=== PATIENT | female | born 1990 | race Caucasian/White ===

== ENCOUNTER 2017-10-17 06:00 | Emergency (ER) | payer BC ==
[~2017-10-17] VITALS: Ht 152.4 cm; Wt 58.0 kg
[2017-10-17 06:00] VITALS: BP 109/60
[~2017-10-17 06:00] MED LIST: IBUP600T16 PO
[2017-10-17] MEDS: ONDANSETRON ODT 4 MG TAB.RAPDIS PO ONE (06:15)
[2017-10-17 06:43] LABS: INFLUENZA A PATIENT NEGATIVE (NEGATIVE); INFLUENZA B PATIENT NEGATIVE (NEGATIVE)
[2017-10-17] MEDS ORDERED: ONDA4TAB10 SL (07:17)
[2017-10-17] MEDS ORDERED: HYDR115S2 PO (07:17)
--- NOTE | 2017-10-17 07:18 | PHYS DOC ---
Past History Past Medical History: No Pertinent History Past Surgical History: No Surgical History Smoking: Cigarettes Alcohol Use: None Drug Use: None Adult General Chief Complaint Chief Complaint: nausea and vomiting and cough [facility] HPI 26-year-old female patient complaining of frequent episodes of nausea and vomiting and diarrhea with cough and congestion and myalgia since last night. Patient states she was not able to tolerate anything and complaining of generalized weakness and crampy pain during episodes of diarrhea and vomiting. She denies sick contact, fever, urinary symptoms, . Review of Systems Review of Systems Constitutional: Denies fever or chills [] Eyes: Denies change in visual acuity, redness, or eye pain [] HENT:Reports nasal congestion or sore throat [] Respiratory: Denies cough or shortness of breath [] Cardiovascular: No additional information not addressed in HPI [] GI: Reports abdominal pain, nausea, vomiting, diarrhea [] : Denies dysuria or hematuria [] Musculoskeletal: Denies back pain or joint pain [] Integument: Denies rash or skin lesions [] Neurologic: Denies headache, focal weakness or sensory changes [] Endocrine: Denies polyuria or polydipsia [] All other systems were reviewed and found to be within normal limits, except as documented in this note. Current Medications Current Medications Current Medications Medications (Trade) Dose Ordered Sig/Jeremy Start Time Stop Time Status Last Admin Dose Admin Ondansetron HCl (Zofran Odt) 4 mg 1X ONCE 10/17/17 06:15 10/17/17 06:33 DC 10/17/17 06:15 4 MG Allergies Allergies Allergies Coded Allergies Type Severity Reaction Last Updated Verified No Known Drug Allergies 05/12/16 No Physical Exam Physical Exam Constitutional: Well developed, well nourished, mild distress, non-toxic appearance. [] HENT: Normocephalic, atraumatic, bilateral external ears normal, oropharynx moist, pharyngeal erythema, no oral exudates, nose normal. [] Eyes: PERRLA, EOMI, conjunctiva normal, no discharge. [] Neck: Normal range of motion, no tenderness, supple, no stridor. [] Cardiovascular:Heart rate regular rhythm, no murmur [] Lungs & Thorax: Bilateral breath sounds clear to auscultation [] Abdomen: Bowel sounds normal, soft, no tenderness, no masses, no pulsatile masses. [] Skin: Warm, dry, no erythema, no rash. [] Back: No tenderness, no CVA tenderness. [] Extremities: No tenderness, no cyanosis, no clubbing, ROM intact, no edema. [] Neurologic: Alert and oriented X 3, normal motor function, normal sensory function, no focal deficits noted. [] Psychologic: Affect normal, judgement normal, mood normal. [] Current Patient Data Vital Signs Vital Signs Date Time Temp Pulse Resp B/P (MAP) Pulse Ox O2 Delivery O2 Flow Rate FiO2 10/17/17 06:00 98.8 104 16 99 Room Air Lab Results Laboratory Tests Test 10/17/17 06:13 Influenza Type A (Rapid) Negative (NEGATIVE) Influenza Type B (Rapid) Negative (NEGATIVE) EKG EKG [] Course & Med Decision Making Course & Med Decision Making Pertinent Labs reviewed. (See chart for details) Evaluation of patient in ER showed 26-year-old female patient with complaining of nausea vomiting and diarrhea with your eye symptoms since last night. Patient had a negative flu test and tolerated oral intake after Zofran. Plan discharge patient home with diagnose of viral gastroenteritis and URI. Dragon Disclaimer Dragon Disclaimer This electronic medical record was generated, in whole or in part, using a voice recognition dictation system. Departure Departure: Impression: Primary Impression: Viral gastroenteritis Additional Impression: Viral upper respiratory infection Disposition: 01 HOME, SELF-CARE (At 0715) Condition: IMPROVED Referrals: ROZINA JAVIER APRN (PCP) Patient Instructions: Upper Respiratory Infection, Adult, Viral Gastroenteritis Additional Instructions: Drink plenty of liquids Follow-up with your primary care physician in 3-5 days Return to ER if not getting better Scripts Hydrocodone/Chlorphen P-Stirex (Tussionex Pennkinetic Susp) 115 Ml Pat.er.12h 5 ML PO BID, #120 ML Prov: YASMANY MULLINS MD 10/17/17 Ondansetron (ZOFRAN ODT) 4 Mg Tab.rapdis 1 TAB SL Q8HRS, #15 TAB Prov: YASMANY MULLINS MD 10/17/17 Problem Qualifiers YASMANY MULLINS MD Oct 17, 2017 07:17
== END 2017-10-17 07:20 | disposition home or self-care (01) ==
LOC: ER 06:00
DX: A08.4 Viral intestinal infection, unspecified (principal); J06.9 Acute upper respiratory infection, unspecified; B97.89 Other viral agents as the cause of diseases classified elsewhere; F17.210 Nicotine dependence, cigarettes, uncomplicated
CPT/HCPCS: 87804; 99284; Q0162

== ENCOUNTER 2019-11-03 01:51 | Emergency (ER) | payer BC ==
[~2019-11-03] VITALS: Ht 152.4 cm; Wt 58.0 kg
[~2019-11-03 01:51] MED LIST changes: +HYDR115S2 PO; +ONDA4TAB10 SL
[2019-11-03 01:55] VITALS: BP 109/60
--- NOTE | 2019-11-03 02:29 | PHYS DOC ---
Past History Past Medical History: No Pertinent History Past Surgical History: No Surgical History Smoking: Cigarettes Alcohol Use: None Drug Use: None Adult General Chief Complaint Chief Complaint: COUGH HPI HPI 28-year-old female presents with cough and fever and body aches for the last 2 days. She has a sore throat as well. She is to milligrams as at home, but the body aches have increased and she feels worse overall. No known sick contacts. Her kids at home have a runny nose. She has had a fever up to 103. She has not taken any antipyretics today. She does not have any risk factors for COVID 19. Review of Systems Review of Systems Constitutional: fever, body aches [] Eyes: Denies change in visual acuity, redness, or eye pain [] HENT: Nasal congestion, sore throat [] Respiratory: cough without shortness of breath [] Cardiovascular: No additional information not addressed in HPI [] GI: Denies abdominal pain, nausea, vomiting, bloody stools or diarrhea [] : Denies dysuria or hematuria [] Musculoskeletal: Denies back pain or joint pain [] Integument: Denies rash or skin lesions [] Neurologic: Denies headache, focal weakness or sensory changes [] Endocrine: Denies polyuria or polydipsia [] All other systems were reviewed and found to be within normal limits, except as documented in this note. Current Medications Current Medications Current Medications Medications (Trade) Dose Ordered Sig/[facility] Start Time Stop Time Status Last Admin Dose Admin Ondansetron HCl (Zofran Odt) 4 mg 1X ONCE 11/03/19 02:30 11/03/19 02:31 Allergies Allergies Allergies Coded Allergies Type Severity Reaction Last Updated Verified No Known Drug Allergies 05/12/16 No Physical Exam Physical Exam Constitutional: Well developed, well nourished, no acute distress, non-toxic appearance. [] HENT: Normocephalic, atraumatic, bilateral external ears normal, oropharynx moist, no oral exudates, nose normal. [] Eyes: PERRLA, EOMI, conjunctiva normal, no discharge. [] Neck: Normal range of motion, no tenderness, supple, no stridor. [] Cardiovascular: Heart rate regular rhythm, no murmur [] Lungs & Thorax: Bilateral breath sounds clear to auscultation [] Abdomen: Bowel sounds normal, soft, no tenderness, no masses, no pulsatile masses. [] Skin: Warm, dry, no erythema, no rash. [] Back: No tenderness, no CVA tenderness. [] Extremities: No tenderness, no cyanosis, no clubbing, ROM intact, no edema. [] Neurologic: Alert and oriented X 3, normal motor function, normal sensory function, no focal deficits noted. [] Psychologic: Affect normal, judgement normal, mood normal. [] EKG EKG [] Radiology/Procedures Radiology/Procedures [] Course & Med Decision Making Course & Med Decision Making Pertinent Labs and Imaging studies reviewed. (See chart for details) The patient's influenza A is negative. This appears to be a viral URI with cou gh. I have advised supportive care including plenty fluids, rest, and Tylenol and ibuprofen for fever. She is stable for discharge at this time. [] Dragon Disclaimer Dragon Disclaimer This electronic medical record was generated, in whole or in part, using a voice recognition dictation system. Departure Departure: Impression: Primary Impression: Viral URI with cough Disposition: 01 HOME, SELF-CARE Condition: STABLE Referrals: PCP,NO (PCP) Patient Instructions: Upper Respiratory Infection, Adult, [id number] CARLTON HARPER DO Nov 03, 2019 02:29
[2019-11-03] MEDS ORDERED: ONDANSETRON ODT 4 MG TAB.RAPDIS PO ONE (02:30)
[2019-11-03 02:52] LABS: INFLUENZA A PATIENT NEGATIVE (NEGATIVE); INFLUENZA B PATIENT NEGATIVE (NEGATIVE)
[2019-11-03] MEDS ORDERED: ACETAMINOPHEN 325 MG TABLET PO ONE (03:00)
== END 2019-11-03 03:25 | disposition home or self-care (01) ==
LOC: ER 01:51
DX: J06.9 Acute upper respiratory infection, unspecified (principal); B97.89 Other viral agents as the cause of diseases classified elsewhere; F17.210 Nicotine dependence, cigarettes, uncomplicated
CPT/HCPCS: 87804; 99283